=== PATIENT | female | born 1995 | race Caucasian/White ===

== ENCOUNTER 2016-10-08 21:43 | Inpatient (IN) | payer MEDICAID ==
[2016-10-08] VITALS (9 sets, daily range): BP systolic 105–127; BP diastolic 63–78; PULSE 102–114; RESP 18; TEMP 98–98.2
[~2016-10-08] VITALS: Ht 167.6 cm; Wt 94.3 kg
[2016-10-08] MEDS ORDERED: LACTATED RINGER'S 1000 ML INJ 1,000 ML IV PRN (22:56)
--- NOTE | 2016-10-08 22:56 | PD ---
HPI Chief Complaint possible leakage of fluid Date Seen: Oct 08, 2016 Travel History International Travel<30 Days: No Contact w/Intl Traveler<30Days: No History of Present Illness HPI 20 yo @ 37w5d. care initiated at [facility], she then transferred to [facility]. She reports uncomplicated and GBS negative per patient. She reports possible leakage of fluid today with a noted larger gush of fluid at 3AM with clear and odorless fluid. 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 Home Meds No Active Prescriptions or Reported Meds Review of Systems General / Constitutional: No: Fever, Chills Eyes: No: Blurred Vision, Visual changes HENT: No: Headaches, Lightheadedness Cardiovascular: No: Chest Pain or Discomfort, Palpitations Respiratory: No: Cough, Short of Breath Gastrointestinal: Abdominal Pain (contractions), No: Nausea, Vomiting, Diarrhea Genitourinary: Discharge (clear fluid), No: Urgency, Frequency, Dysuria, Vaginal Bleeding Musculoskeletal: No: Limited ROM, Weakness Skin: No Rash, No Itching, No Lesions Neurologic: No: Syncope, Focal Abnormalities Hematologic/Lymphatic: No Easy Bruising, No Lymph Node Enlargement Physical Exam Vital Signs Date Time Temp Pulse Resp B/P Pulse Ox O2 Delivery O2 Flow Rate FiO2 10/08/16 22:07 114 127/78 10/08/16 22:06 98.2 18 Narrative GENERAL: Well-nourished, well-developed patient. SKIN: Warm and dry. HEAD: Normocephalic and atraumatic. EYES: No scleral icterus. No injection or drainage. ENT: No nasal drainage noted. Mucous membranes pink. Airway patent. NECK: trachea midline. No JVD. CARDIOVASCULAR: Regular rate and rhythm without murmurs, gallops, or rubs. RESPIRATORY: Breath sounds equal bilaterally. No accessory muscle use. ABDOMEN/GI: Abdomen soft, non-tender, no rebound, no guarding Gravid EGW 3500g GENITOURINARY: External Genitalia: intact and normal in appearance Amnisure POS SVE 1/75/-2 FHT's: Category: I Baseline: 145 Reactive: + Variability: mod Decels: [-] EXTREMITIES: No cyanosis, +1 edema. BACK: Nontender without obvious deformity. NEUROLOGICAL: Awake and alert. Motor and sensory grossly within normal limits. Normal speech. Data Data Vital Signs Reviewed: Yes Orders Vital Signs (Adult) .ON ADMISSION (10/08/16 22:00) ^ Labor Status (10/08/16 22:00) ^ Non Stress Test (10/08/16 22:00) ^ Hydration (10/08/16 22:00) Pamg-1 Test .ONCE (10/08/16 22:03) Ob (2e) Additional Admit Info (10/08/16 22:47) MDM Narrative Course / MDM 37 weeks PROM with clear fluid VSS, afebrile CAT I FHT GBS negative Hx MRSA/MDRO Hx of head injury Plan Admit Records from [facility] requested labs to draw as needed if records not received Pitocin augmentation Reviewed labor, augmentation, pain management, and delivery with patient Rapid MRSA screen All questions answered Scripts No Active Prescriptions or Reported Meds Ashley Carrera MD Oct 08, 2016 22:56
[2016-10-08] MEDS ORDERED: SODIUM CHLORID 0.9% 500 ML INJ 500 ML IV PRN (23:00)
[2016-10-08] MEDS ORDERED: LIDOCAINE HCL 1% 50 ML VIAL I-DERMAL PRN (23:00)
[2016-10-08] MEDS ORDERED: LIDOCAINE HCL 1% 50 ML VIAL INFIL PRN (23:00)
[2016-10-08] MEDS ORDERED: OXYTOCIN 30 UNITS-500ML PREMIX 500 ML IV SCH (23:00)
[2016-10-08] MEDS ORDERED: CITRIC ACID-SODIUM CITRATE LIQ 30 ML UDC PO SCH (23:00)
[2016-10-08] MEDS ORDERED: OXYTOCIN 30 UNITS-500ML PREMIX 500 ML IV ONE (23:00)
[2016-10-08] MEDS ORDERED: MINERAL OIL 10 ML VIAL TOPICAL PRN (23:00)
[2016-10-08] MEDS ORDERED: ONDANSETRON HCL 4 MG/2 ML VIAL IV PRN (23:00)
[2016-10-08] MEDS ORDERED: PREN1TAB30 (23:04)
[2016-10-08] MEDS ORDERED: SODIUM CHLOR 0.9% 1000 ML INJ 1,000 ML IV PRN (23:16)
--- NOTE | 2016-10-08 23:58 | HHI.HP ---
History & Physical H&P HPI HPI Chief Complaint possible leakage of fluid Date Seen: Oct 08, 2016 Travel History International Travel<30 Days: No Contact w/Intl Traveler<30Days: No History of Present Illness HPI 20 yo @ 37w5d presenting with possible rupture of membranes at 3 AM this morning. Denies vaginal bleeding. Endorses contractions, irregular, less than 1 every 20 minutes.. care initiated at [facility], she then transferred to [facility]. She reports uncomplicated and GBS negative per patient. 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 Home Meds No Active Prescriptions or Reported Meds ROS Review of Systems General / Constitutional: No: Fever, Chills Eyes: No: Blurred Vision, Visual changes HENT: No: Headaches, Lightheadedness Cardiovascular: No: Chest Pain or Discomfort, Palpitations Respiratory: No: Cough, Short of Breath Gastrointestinal: Abdominal Pain (contractions), No: Nausea, Vomiting, Diarrhea Genitourinary: Discharge (clear fluid), No: Urgency, Frequency, Dysuria, Vaginal Bleeding Musculoskeletal: No: Limited ROM, Weakness Skin: No Rash, No Itching, No Lesions Neurologic: No: Syncope, Focal Abnormalities Hematologic/Lymphatic: No Easy Bruising, No Lymph Node Enlargement Physical Exam Physical Exam Vital Signs Date Time Temp Pulse Resp B/P Pulse Ox O2 Delivery O2 Flow Rate FiO2 10/08/16 22:07 114 127/78 10/08/16 22:06 98.2 18 Narrative GENERAL: Well-nourished, well-developed patient. SKIN: Warm and dry. HEAD: Normocephalic and atraumatic. EYES: No scleral icterus. No injection or drainage. ENT: No nasal drainage noted. Mucous membranes pink. Airway patent. NECK: trachea midline. No JVD. CARDIOVASCULAR: Regular rate and rhythm without murmurs, gallops, or rubs. RESPIRATORY: Breath sounds equal bilaterally. No accessory muscle use. ABDOMEN/GI: Abdomen soft, non-tender, no rebound, no guarding EFW 3500g GENITOURINARY: External Genitalia: intact and normal in appearance Amnisure POS SVE 1/75/-2 FHT's: Category: 1 Baseline: 145 Reactive: + Variability: mod Decels: none EXTREMITIES: No cyanosis, trace edema to b/l ankles. BACK: Nontender without obvious deformity. NEUROLOGICAL: Awake and alert. Motor and sensory grossly within normal limits. Normal speech. Data Data Data Vital Signs Date Time Temp Pulse Resp B/P Pulse Ox O2 Delivery O2 Flow Rate FiO2 10/08/16 23:20 105/63 10/08/16 23:19 98.0 10/08/16 22:07 114 10/08/16 22:06 18 Current Medications Medications (Trade) Dose Ordered Sig/Lizzeth Route PRN Reason Start Time Stop Time Status Last Admin Dose Admin Lactated Ringer's 1,000 ml @ 125 mls/hr Q8H IV 10/08/16 22:56 Lactated Ringer's 1,000 ml @ 3,000 mls/hr Q20M PRN IV SEE LABEL COMMENTS 10/08/16 22:56 Sodium Chloride 500 ml @ 1,000 mls/hr ONCE PRN IV SEE LABEL COMMENTS 10/08/16 23:00 10/10/16 22:59 Sodium Chloride (NS 1000 ml Inj) 1,000 ml @ 100 mls/hr Q10H PRN IV See Comments 10/08/16 23:16 Lidocaine HCl (Xylocaine 1% Inj (50 ml)) 0.1 ml UNSCH X1 PRN I-DERMAL SEE LABEL COMMENTS 10/08/16 23:00 10/11/16 22:59 Citric Acid/ Sodium Citrate (Bicitra Liq) 30 ml MACHINE WORKER PO 10/08/16 23:00 10/12/16 22:59 Ondansetron HCl (Zofran Inj) 4 mg Q6H PRN IV NAUSEA 10/08/16 23:00 Fentanyl Citrate (fentaNYL INJ) 50 mcg Q1H PRN IV PUSH PAIN SCALE 3 TO 5 10/08/16 23:00 Fentanyl Citrate 100 mcg 100 mcg Q1H PRN IV PUSH PAIN SCALE 6 TO 10 10/08/16 23:00 Oxytocin (Pitocin 30 Units-NS 500 ml Premix) 500 ml @ 999 mls/hr ONCE ONCE IV 10/08/16 23:00 10/08/16 23:30 DC Lidocaine HCl (Xylocaine 1% Inj (50 ml)) 10 ml UNSCH X1 PRN INFIL SEE LABEL COMMENTS 10/08/16 23:00 10/10/16 22:59 Mineral Oil 10 ml 10 ml UNSCH PRN TOPICAL SEE LABEL COMMENTS 10/08/16 23:00 Oxytocin (Pitocin 30 Units-NS 500 ml Premix) 500 ml @ 0 mls/hr TITRATE IV 10/08/16 23:00 MDM MDM Narrative Course / MDM 20-year-old at 37/5 weeks gestation presenting with spontaneous rupture of membranes #1 IUP Category 1 tracing, reassuring #2 GBS negative #3 spontaneous rupture of membranes Amni-Sure positive, time of rupture approximately 0300 - Admit to labor and delivery - Labor augmentation with oxytocin 04/29/29 titrated per protocol - Routine labor care Edwin Isabel MD R1 Oct 08, 2016 23:58
[2016-10-09] VITALS (199 sets, daily range): BP systolic 85–144; BP diastolic 44–93; PULSE 76–186; RESP 16–48; TEMP 97.4–100; O2SAT 98–100
[2016-10-09 00:12] LABS: AUTOMATED NEUTROPHIL # 7.4 TH/MM3 (1.8-7.7); BASOPHIL % 0.3 % (0.0-2.0); EOSINOPHIL # 0.1 TH/MM3 (0-0.4); EOSINOPHIL % 0.7 % (0.0-4.0); HEMATOCRIT 35.8 % (35.0-46.0); HEMO FLAGS DIFF FINAL; LYMPH % 18.2 % (9.0-44.0); LYMPHOCYTE # 1.9 TH/MM3 (1.0-4.8); MEAN CELL VOLUME 83.7 FL (80.0-100.0); MEAN CORPUSCULAR HEMOGLOBIN 28.5 PG (27.0-34.0); MONO % 8.5 % (0.0-8.0); NEUT % 72.3 % (16.0-70.0); PLATELET COUNT 253 TH/MM3 (150-450); RED BLOOD COUNT 4.28 MIL/MM3 (4.00-5.30); RED CELL DISTRIBUTION WIDTH 13.8 % (11.6-17.2); WHITE BLOOD COUNT 10.3 TH/MM3 (4.0-11.0)
[2016-10-09 00:22] LABS: BACTERIA, URINE RARE /hpf; BLOOD, URINE NEG (NEG); COMMENT (UR) CULT NOT INDICATED; CULTURE IF INDICATED CULT NOT INDICATED; GLUCOSE,URINE 300 mg/dL (NEG); KETONE, URINE NEG (NEG); NITRITE,URINE NEG (NEG); SQUAMOUS EPITHELIAL CELL URINE 1 /hpf (0-5); URINE COLOR YELLOW (YELLW/STRAW)
[2016-10-09] MEDS: LACTATED RINGER'S 1000 ML INJ 1,000 ML IV SCH ×4 (00:41→14:30)
[2016-10-09 02:25] LABS: RUBELLA IGG ANTIBODY 79.9 IU/mL (10.0-500.0); RUBELLA STATUS IMMUNE (IMMUNE)
--- NOTE | 2016-10-09 10:30 | PD.LABORPN ---
Subjective Subjective Labor note SROM prolonged [24 + hrs] - will begin IV Amp 2 gm q 6 US confirms cephalic IUPC not working well has worked itself out - removed cx - /-3 palpable sac noted - ruptured with amnihook FHR reactive , CTXs q 2-3 min on pit IV Objective Vital Signs Vital Signs Date Time Temp Pulse Resp B/P Pulse Ox O2 Delivery O2 Flow Rate FiO2 10/09/16 10:00 80 126/81 10/09/16 09:54 84 120/70 10/09/16 09:53 20 10/09/16 09:00 98.1 10/09/16 08:49 18 10/09/16 08:49 16 10/09/16 08:48 96 118/77 10/09/16 08:15 87 130/68 10/09/16 08:00 83 115/79 10/09/16 07:53 20 10/09/16 07:45 85 121/61 10/09/16 07:30 84 112/69 10/09/16 07:15 89 109/71 10/09/16 07:00 20 10/09/16 07:00 98.1 10/09/16 07:00 82 116/73 10/09/16 06:50 103 10/09/16 06:45 90 115/74 10/09/16 06:45 89 10/09/16 06:40 88 10/09/16 06:32 18 10/09/16 06:30 86 106/66 10/09/16 06:25 79 10/09/16 06:15 117/72 10/09/16 06:10 87 10/09/16 06:05 88 10/09/16 06:00 87 117/70 10/09/16 05:57 97.5 48 10/09/16 05:55 87 10/09/16 05:50 93 10/09/16 05:45 83 110/61 10/09/16 05:40 92 10/09/16 05:35 93 10/09/16 05:31 90 114/58 10/09/16 05:29 18 10/09/16 05:25 90 10/09/16 05:15 126/62 10/09/16 05:15 86 10/09/16 05:10 94 10/09/16 05:01 97 115/62 10/09/16 05:00 18 10/09/16 04:55 96 10/09/16 04:50 92 10/09/16 04:45 99 118/71 10/09/16 04:40 94 10/09/16 04:30 98 121/68 10/09/16 04:29 18 10/09/16 04:25 88 10/09/16 04:20 90 10/09/16 04:15 91 111/64 10/09/16 04:10 89 10/09/16 04:05 92 10/09/16 04:00 95 10/09/16 04:00 98.7 10/09/16 04:00 105/68 10/09/16 03:55 92 10/09/16 03:50 98 10/09/16 03:48 18 10/09/16 03:45 97 114/66 10/09/16 03:40 96 10/09/16 03:35 92 10/09/16 03:31 93 123/71 10/09/16 03:25 99 10/09/16 03:15 96 94/53 10/09/16 03:10 96 10/09/16 03:08 93 117/68 10/09/16 02:55 101 10/09/16 02:52 18 10/09/16 02:50 102 10/09/16 02:45 94 10/09/16 02:45 110/87 10/09/16 02:40 99 10/09/16 02:35 96 10/09/16 02:33 109/74 10/09/16 02:33 96 10/09/16 02:31 97 92/55 10/09/16 02:30 18 Objective Pelvic Exam: Cervix: [-] Dilatation: [1-] Effacement: [60-] Station: [-2] Presentation: [vtx-] Membranes: [i ruptured] Uterine Contractions: [-q 2-3 min] FHT's: Category: [1-] Baseline: [133-] Reactive: [-yes] Variability: [mod-] Decels: [0-] Vasyl Cody II, MD Oct 09, 2016 10:30
[2016-10-09] MEDS: AMPICILLIN INJ 2,000 MG in SODIUM CHLORIDE 0.9% INJ 100 ML IV SCH ×2 (10:46→16:56)
[2016-10-09] MEDS ORDERED: AMPICILLIN 2000 MG IV SCH (11:00)
[2016-10-09] MEDS ORDERED: fentaNYL 2MCG-BUPIV 0.125% INJ 100 ML ONE ×2 (11:41→15:02)
[2016-10-09] MEDS ORDERED: ePHEDrine/NS 25 MG/5 ML SYR ONE ×2 (13:38→13:50)
[2016-10-09] MEDS ORDERED: fentaNYL 2MCG-BUPIV 0.125% 100 ML EPIDURAL SCH (16:15)
[2016-10-09] MEDS ORDERED: DO NOT ADMINISTER ANTICOAGULANTS PRN (16:15)
[2016-10-09] MEDS ORDERED: NO SYSTEM NARCOTICS PRN (16:15)
[2016-10-09] MEDS ORDERED: ePHEDrine/NS 25 MG/5 ML SYR IV PRN (16:15)
--- NOTE | 2016-10-09 21:22 | PD.OB.DELI ---
Anesthesia: Epidural Episiotomy: None Vaginal Delivery: Normal Presentation: Occiput anterior Nuchal Cord: x1 Delayed cord clamping (45 sec): No : Male One Minute : 8 Five Minute : 8 Weight: 3360 gm Placenta: Manual removal, Not Intact, Uterus explored + Laceration: Vaginal laceration Repair: Vicryl running Additional Information umb cord broke requiring manual removal of placenta all POC removed Vasyl Cody II, MD Oct 09, 2016 21:22
[2016-10-09] MEDS ORDERED: oxyCODONE/ACETAMINOPHEN 5 MG/325 MG TAB PO PRN (21:30)
[2016-10-09] MEDS ORDERED: ONDANSETRON ODT 4 MG TAB PO PRN (21:30)
[2016-10-09] MEDS ORDERED: WITCH HAZEL 50%/GLYCERIN 12.5% 40 PAD JAR TOPICAL PRN (21:30)
[2016-10-09] MEDS ORDERED: ALUMINUM/MAGNESIUM/SIMETH 30 ML CUP PO PRN (21:30)
[2016-10-09] MEDS ORDERED: BENZOCAINE 20% TOPICAL SPRAY 60 ML CAN TOPICAL PRN (21:30)
[2016-10-09] MEDS ORDERED: ACETAMINOPHEN 325 MG TAB PO PRN (21:30)
[2016-10-09] MEDS ORDERED: DOCUSATE SODIUM 50 MG/SENNA 8.6 MG TAB PO PRN (21:30)
[2016-10-09] MEDS ORDERED: ZOLPIDEM TARTRATE 5 MG TAB PO PRN (21:30)
[2016-10-09] MEDS: IBUPROFEN 600 MG TAB PO PRN (22:57)
[2016-10-10] MEDS: SODIUM CHLORIDE 0.9% FLUSH 10 ML FLUSH IV FLUSH PRN ×2 (00:28→06:25)
[2016-10-10] MEDS: AMPICILLIN INJ 2,000 MG in SODIUM CHLORIDE 0.9% INJ 100 ML IV SCH ×2 (00:29→06:25)
[2016-10-10 00:30] VITALS: BP 112/53; PULSE 90; RESP 20; TEMP 99.4
[2016-10-10 04:24] VITALS: TEMP 98.7
[2016-10-10] MEDS: IBUPROFEN 600 MG TAB PO PRN ×2 (04:24→21:17)
[2016-10-10 08:00] VITALS: BP 102/55; PULSE 83; RESP 18; TEMP 97.7
--- NOTE | 2016-10-10 08:02 | HHI.OB ---
Subjective Post Day: 1 Remarks 20 year old female s/p at 37 wks gestation, PPD 1. AFVSS. Patient reports she is feeling well. Bleeding is like a period with small clots and pain is well-controlled. She is planning to breast feed and is bonding well with baby. Ambulating without difficulties. She is tolerating a diet without nausea or vomiting. She has not had a bowel movement. She has passed gas. Denies chest pain, dysuria, shortness of breath, or calf pain. Objective Vitals/I&O Vital Signs Date Time Temp Pulse Resp B/P Pulse Ox O2 Delivery O2 Flow Rate FiO2 10/10/16 04:24 98.7 10/10/16 00:30 99.4 90 20 112/53 10/09/16 22:57 100.0 10/09/16 21:52 99.1 10/09/16 21:52 18 10/09/16 21:45 117 121/70 10/09/16 21:41 20 10/09/16 21:33 113/73 10/09/16 21:30 18 10/09/16 21:30 127 94/77 10/09/16 21:15 129 131/68 10/09/16 21:15 18 10/09/16 21:08 186 105/57 10/09/16 21:00 132 113/58 10/09/16 20:33 98.3 10/09/16 20:30 136 132/77 10/09/16 20:08 20 10/09/16 20:00 101 10/09/16 20:00 107/56 10/09/16 19:40 103 10/09/16 19:37 18 10/09/16 19:35 103 10/09/16 19:30 115/64 10/09/16 19:05 104 10/09/16 19:00 104 10/09/16 19:00 119/73 10/09/16 18:55 116 10/09/16 18:45 118/73 10/09/16 18:40 93 10/09/16 18:35 94 10/09/16 18:30 96 10/09/16 18:30 96 117/77 10/09/16 18:25 102 10/09/16 18:22 98.7 10/09/16 18:21 20 7/15/17 18:20 99 15/17 18:16 102 124/75 15/17 18:15 96 15/17 18:15 98 98/69 15/17 18:10 99 15/17 18:05 102 15/17 18:00 102 1517 18:00 102 125/71 715/17 17:55 104 15/17 17:50 99 15/17 17:45 98 125/71 15/17 17:45 97 15/17 17:40 92 15/17 17:35 98 15/17 17:30 93 113/65 715/17 17:30 89 15/17 17:25 87 15/17 17:21 20 15/17 17:20 90 15/17 17:19 98.5 15/17 17:15 78 15/17 17:15 79 100/60 15/17 17:00 101 116/66 15/17 17:00 94 15/17 16:55 99 15/17 16:50 93 15/17 16:45 98 115/68 15/17 16:45 96 15/17 16:40 87 15/17 16:35 97 15/17 16:30 96 124/65 15/17 16:30 95 15/17 16:25 91 15/17 16:20 102 15/17 16:19 98.0 15/17 16:18 20 15/17 16:15 114 123/69 715/17 16:10 92 15/17 16:05 89 15/17 16:00 91 15/17 16:00 87 106/66 715/17 15:55 95 15/17 15:50 97 109/56 715/17 15:45 97 98/54 715/17 15:45 98 /15/17 15:40 101 15/17 15:39 18 7/15/17 15:39 20 15/17 15:36 98.2 15/17 15:35 92 7/15/17 15:32 90 101/47 7/15/17 15:30 89 94/44 7/15/17 15:30 88 7/15/17 15:25 90 7/15/17 15:20 89 7/15/17 15:15 86 7/15/17 15:15 97 107/49 7/15/17 15:10 104 7/15/17 15:05 99 7/15/17 15:02 94 101/49 7/15/17 15:01 107/48 7/15/17 15:01 102 7/15/17 15:00 101 18 7/15/17 15:00 101 111/60 7/15/17 14:56 92 108/63 7/15/17 14:55 107 98 7/15/17 14:52 88 95/47 7/15/17 14:50 90 7/15/17 14:50 100 7/15/17 14:50 85 96/50 7/15/17 14:49 87 90/46 7/15/17 14:48 98 93/48 7/15/17 14:46 106 85/64 7/15/17 14:46 83 85/48 7/15/17 14:40 89 7/15/17 14:40 88 107/61 7/15/17 14:35 88 110/62 7/15/17 14:35 91 7/15/17 14:30 91 7/15/17 14:30 93 114/60 7/15/17 14:30 98.1 7/15/17 14:30 18 7/15/17 14:28 103/52 7/15/17 14:28 90 7/15/17 14:25 89 7/15/17 14:25 121/69 7/15/17 14:25 82 7/15/17 14:22 92 7/15/17 14:22 106/58 7/15/17 14:20 99 7/15/17 14:20 90/67 7/15/17 14:20 98 7/15/17 14:20 100 7/15/17 14:15 98 113/58 7/15/17 14:15 88 7/15/17 14:10 94 115/62 7/15/17 14:10 96 7/15/17 14:07 100 112/58 7/15/17 14:06 94 110/56 10/09/16 14:05 93 10/09/16 14:02 20 10/09/16 14:01 95 122/59 10/09/16 14:00 102 121/66 10/09/16 14:00 98 10/09/16 13:30 89 138/87 10/09/16 13:15 20 10/09/16 13:15 98.2 10/09/16 13:02 95 124/93 10/09/16 12:56 106 20 144/86 10/09/16 12:30 76 121/71 10/09/16 11:57 20 10/09/16 11:53 88 126/76 10/09/16 11:30 98 138/83 10/09/16 11:19 98.0 18 10/09/16 11:17 88 126/79 10/09/16 11:00 97.4 18 10/09/16 10:52 99 131/76 10/09/16 10:30 99 128/84 10/09/16 10:00 80 126/81 10/09/16 09:54 84 120/70 10/09/16 09:53 20 10/09/16 09:00 98.1 10/09/16 08:49 18 10/09/16 08:49 16 10/09/16 08:48 96 118/77 10/09/16 08:15 87 130/68 Objective Remarks GENERAL: Well-nourished, well-developed patient. CARDIOVASCULAR: Regular rate and rhythm without murmurs, gallops, or rubs. RESPIRATORY: Breath sounds equal bilaterally. No accessory muscle use. ABDOMEN/GI: Abdomen soft, non-tender. Fundus: Firm, non-tender at umbilicus. GENITOURINARY: Light to moderate bleeding. EXTREMITIES: No cyanosis or edema, non-tender, without signs of DVT. Medications and IVs Current Medications Medications (Trade) Dose Ordered Sig/Lizzeth Route Start Time Stop Time Status Last Admin (Ampicillin Inj/ NS Inj) 100 ml @ 400 mls/hr Q6HR IV 10/09/16 12:00 10/10/16 06:25 Miscellaneous Information No systemic narcotics to be given except... UNSCH PRN .XX 10/09/16 16:15 10/10/16 16:14 Miscellaneous Information DO NOT ADMINISTER ANY ANTICOAGUL... UNSCH PRN .XX 10/09/16 16:15 10/10/16 16:14 (NS Flush) 2 ml BID IV FLUSH 10/10/16 09:00 (NS Flush) 2 ml UNSCH PRN IV FLUSH 10/09/16 21:30 10/10/16 06:25 (Tylenol) 650 mg Q4H PRN PO 10/09/16 21:30 (Motrin) 600 mg Q6H PRN PO 10/09/16 21:30 10/10/16 04:24 (Percocet 5-325 Mg) 1 tab Q4H PRN PO 10/09/16 21:30 (Americaine 20% Top Spr) 1 spray Q4H PRN TOPICAL 10/09/16 21:30 10/10/16 01:44 (Tucks Pads) 1 applic QID PRN TOPICAL 10/09/16 21:30 10/10/16 01:45 (Elizabeth-Colace) 2 tab Q12H PRN PO 10/09/16 21:30 (Ambien) 5 mg HS PRN PO 10/09/16 21:30 (Mag-Al Plus Susp Liq) 15 ml Q8H PRN PO 10/09/16 21:30 (Zofran Odt) 4 mg Q6H PRN PO 10/09/16 21:30 Assessment/Plan Assessment and Plan 20 yo female s/p , PPD 1 - AFVSS - Continue routine care - Motrin PRN pain - Encourage OOB - Pelvic rest x 6 wks - Contraception: - Anticipate D/C 10/[address] Escobar Antunez,Betsy Carmona MD R1 Oct 10, 2016 08:02
[2016-10-10] MEDS ORDERED: SODIUM CHLORIDE 0.9% FLUSH 10 ML FLUSH IV FLUSH SCH (09:00)
[2016-10-10 20:00] VITALS: BP 117/66; PULSE 91; RESP 16; TEMP 98
[2016-10-11] MEDS ORDERED: IBUP-232 PO (06:42)
--- NOTE | 2016-10-11 06:43 | HHI.DCPOC ---
Discharge Care Plan Diagnosis: (1) Normal vaginal delivery Report Symptoms to Your Doctor -Temperature above 100.5 degrees -Redness, of incision or excessive or foul smelling drainage -Unusual pain or calf pain -Increased vaginal bleeding -Painful or difficulty urinating -Feelings of extreme sadness or anxiety after 2 weeks Goals to Promote Your Health * To prevent worsening of your condition and complications * To maintain your health at the optimal level Directions to Meet Your Goals Take your medications as prescribed Follow your dietary instruction Follow activity as directed Ensure plenty of rest for recovery Drink fluids for hydration Keep your appointments as scheduled Take your immunizations and boosters as scheduled If your symptoms worsen call your PCP, if no PCP go to Urgent Care Center or Emergency Room Smoking is Dangerous to Your Health. Avoid second hand smoke Call the 24-hour crisis hotline for domestic abuse at Edwin Isabel MD R1 Oct 11, 2016 06:43 Ashley Carrera MD Oct 11, 2016 09:57
[2016-10-11 08:20] VITALS: BP 117/74; PULSE 98; RESP 16; TEMP 98.1
--- NOTE | 2016-10-11 08:50 | HHI.OB ---
Subjective Post Day: 2 Remarks 20 YO delivered via at 37/6 weeks and is progressing appropriately on PPD2. Meeting all goals with reduced bleeding, tolerating PO, voiding , flatus (no BM yet), ambulating and pain well controlled. Pt denies CP, SOB, N/ V/D and DVT pain. (Trav Murphy MD R1) Objective Vitals/I&O Vital Signs Date Time Temp Pulse Resp B/P Pulse Ox O2 Delivery O2 Flow Rate FiO2 10/10/16 20:00 98.0 91 16 117/66 Objective Remarks GENERAL: WDWN in NAD preparing to breastfeed her baby. CARDIOVASCULAR: RRR without murmur, gallop, or rub. RESPIRATORY: Breath sounds equal bilaterally and no increased WOB. No accessory muscle use. ABDOMEN/GI: Abdomen soft, non-tender. Fundus: Firm, non-tender below umbilicus. GENITOURINARY: Light to moderate bleeding. EXTREMITIES: No cyanosis or edema, non-tender, without signs of DVT. Medications and IVs Current Medications Medications (Trade) Dose Ordered Sig/Lizzeth Route Start Time Stop Time Status Last Admin (Ampicillin Inj/ NS Inj) 100 ml @ 400 mls/hr Q6HR IV 10/09/16 12:00 10/10/16 06:25 (NS Flush) 2 ml BID IV FLUSH 10/10/16 09:00 (NS Flush) 2 ml UNSCH PRN IV FLUSH 10/09/16 21:30 10/10/16 06:25 (Tylenol) 650 mg Q4H PRN PO 10/09/16 21:30 (Motrin) 600 mg Q6H PRN PO 10/09/16 21:30 10/10/16 21:17 (Percocet 5-325 Mg) 1 tab Q4H PRN PO 10/09/16 21:30 (Americaine 20% Top Spr) 1 spray Q4H PRN TOPICAL 10/09/16 21:30 10/10/16 01:44 (Tucks Pads) 1 applic QID PRN TOPICAL 10/09/16 21:30 10/10/16 01:45 (Elizabeth-Colace) 2 tab Q12H PRN PO 10/09/16 21:30 10/10/16 21:17 (Ambien) 5 mg HS PRN PO 10/09/16 21:30 (Mag-Al Plus Susp Liq) 15 ml Q8H PRN PO 10/09/16 21:30 (Zofran Odt) 4 mg Q6H PRN PO 10/09/16 21:30 (Boostrix Inj) 0.5 ml ONCE ONCE IM 10/11/16 16:00 10/11/16 16:01 (Trav Murphy MD R1) Assessment/Plan Assessment and Plan 20 yo female s/p is progressing well on PPD 2 - AFVSS - Continue routine care - Motrin PRN pain - Encourage OOB - Pelvic rest x 6 wks - Contraception: still considering options. Declined offer of Depo - D/C 10/[address] Carrera (Trav Murphy MD R1) Attending Attestation PPD #2 s/p Doing well D/c home PP precautions patient seen and examined. Discussed with Dr. Murphy and Dr. Isabel. (Ashley Carrera MD) Trav Murphy MD R1 Oct 11, 2016 08:50 Ashley Carrera MD Oct 11, 2016 09:56
[2016-10-11] MEDS: IBUPROFEN 600 MG TAB PO PRN ×2 (10:01→17:22)
[2016-10-11 11:26] LABS: RAPID PLASMA REAGIN SCREEN NON-REACTIVE (NON-REACTVE)
[2016-10-11] MEDS ORDERED: DIPHTH/TETANUS/ACEL PERTUSSIS (BOOSTER) 0.5 ML VIAL/PFS IM ONE (16:00)
== END 2016-10-11 19:41 | disposition home or self-care (01) | DRG 767 ==
LOC: HOBED 21:43 → H2EA 22:51 → H1EA 10-09 23:07
PROVIDERS: ADMIT Obstetrics & Gynecology; ATTEND Obstetrics & Gynecology
PROC: 10E0XZZ Delivery of Products of Conception, External Approach (ICD-10-PCS; principal; 2016-10-09)
PROC: 10D17ZZ Extraction of Products of Conception, Retained, Via Natural or Artificial Opening (ICD-10-PCS; 2016-10-09)
PROC: 0KQM0ZZ Repair Perineum Muscle, Open Approach (ICD-10-PCS; 2016-10-09)
DX: O42.02 Full-term premature rupture of membranes, onset of labor within 24 hours of rupture (principal); O69.81X0 Labor and delivery complicated by cord around neck, without compression, not applicable or unspecified; Z37.0 Single live birth; Z86.14 Personal history of Methicillin resistant Staphylococcus aureus infection; Z3A.37 37 weeks gestation of pregnancy; O73.0 Retained placenta without hemorrhage; O70.1 Second degree perineal laceration during delivery
CPT/HCPCS: 59025; 80074; 81001; 84112; 85025; 86592; 86762; 86900; 86901; 87641; 90715; 99285; J0290; J2405; J2590; J3010; J7120